=== PATIENT | male | born 1950 | race Caucasian/White ===

== ENCOUNTER → 2017-01-01 | Outpatient (CLI) | payer MEDICARE ==
[~2017-01-01] MED LIST: LAMICTAL200 MG PO; PRAVACHOL40 MG PO; ZANTAC300 MG PO; ZONISAMIDE50 MG PO; ZYLOPRIM300 MG PO
== END | disposition short-term general hospital (02) ==
LOC: CLUROL 08:36
DX: N40.0 Benign prostatic hyperplasia without lower urinary tract symptoms (principal)